=== PATIENT | female | born 1975 | race African-American/Black ===

== ENCOUNTER → 2019-04-05 | Outpatient (CLI) | payer BC ==
--- NOTE | 2019-04-05 10:12 | KCIC ---
BILATERAL DIAGNOSTIC MAMMOGRAPHY AND RIGHT BREAST ULTRASOUND History: Right breast lump and pain since 2013, recently getting larger. Comparison: Bilateral mammogram and right breast ultrasound May 03, 2012. Technique: Bilateral digital mammogram views were obtained. Findings: Breast Tissue Density D :The breasts are extremely dense, which lowers the sensitivity of mammography. There are no dominant masses, suspicious microcalcifications or architectural distortion. There is a new mildly enlarged right axillary lymph node. Real-time ultrasound imaging of the right breast is performed. At the 2:00 position 7 cm from the nipple at the area of lump, the breast tissues are extremely dense. In the axilla there is a well-circumscribed hypoechoic mass measuring 1.8 x 0.6 x 1.2 cm. Color Doppler demonstrates internal blood flow. The mass may be an abnormal lymph node. 2 other axillary lymph nodes are identified with mild cortical thickening. IMPRESSION: There is an abnormal right axillary lymph node. Recommend further evaluation with ultrasound-guided biopsy. BI-RADS Category 4: Suspicious. A message was left for Renetta Winn NP at 10:04 AM recommending biopsy. Bottom Scrubber discussed the results with the patient. The images were reviewed with computer-aided detection. Patient information is entered into the reminder system with a target due date for the next screening mammogram. Mammography is the most sensitive method for finding small breast cancers, but it does not detect them all and is not a substitute for careful clinical examination. A negative mammogram does not negate a clinically suspicious finding and should not result in delay in biopsying a clinically suspicious abnormality. "Our facility is accredited by the [employer] Mammography Program." Electronically signed by: Gumaro Sorensen MD (04/05/2019 10:10 AM) [facility]
--- NOTE | 2019-04-05 10:12 | KCIC ---
BILATERAL DIAGNOSTIC MAMMOGRAPHY AND RIGHT BREAST ULTRASOUND History: Right breast lump and pain since 2013, recently getting larger. Comparison: Bilateral mammogram and right breast ultrasound May 03, 2012. Technique: Bilateral digital mammogram views were obtained. Findings: Breast Tissue Density D :The breasts are extremely dense, which lowers the sensitivity of mammography. There are no dominant masses, suspicious microcalcifications or architectural distortion. There is a new mildly enlarged right axillary lymph node. Real-time ultrasound imaging of the right breast is performed. At the 2:00 position 7 cm from the nipple at the area of lump, the breast tissues are extremely dense. In the axilla there is a well-circumscribed hypoechoic mass measuring 1.8 x 0.6 x 1.2 cm. Color Doppler demonstrates internal blood flow. The mass may be an abnormal lymph node. 2 other axillary lymph nodes are identified with mild cortical thickening. IMPRESSION: There is an abnormal right axillary lymph node. Recommend further evaluation with ultrasound-guided biopsy. BI-RADS Category 4: Suspicious. A message was left for Renetta Winn NP at 10:04 AM recommending biopsy. Dredge Pump Operator discussed the results with the patient. The images were reviewed with computer-aided detection. Patient information is entered into the reminder system with a target due date for the next screening mammogram. Mammography is the most sensitive method for finding small breast cancers, but it does not detect them all and is not a substitute for careful clinical examination. A negative mammogram does not negate a clinically suspicious finding and should not result in delay in biopsying a clinically suspicious abnormality. "Our facility is accredited by the [employer] Mammography Program." Electronically signed by: Gumaro Sorensen MD (04/05/2019 10:10 AM) [id number]
== END | disposition home or self-care (01) ==
LOC: KCIC MAMMO 07:49
PROVIDERS: ATTEND Nurse Practitioner Family
DX: R59.0 Localized enlarged lymph nodes (principal); N63.12 Unspecified lump in the right breast, upper inner quadrant
CPT/HCPCS: 76641; 77066